=== PATIENT | female | born 1975 | race Caucasian/White ===

== ENCOUNTER 2016-11-20 09:05 | Emergency (ER) | payer OTHER ==
[~2016-11-20] VITALS: Ht 170.2 cm; Wt 68.2 kg
[~2016-11-20 09:05] MED LIST: CYCL-36 PO; IBUP-232 PO
[2016-11-20 09:13] VITALS: BP 134/95; PULSE 94; RESP 18; TEMP 98.2; O2SAT 98
[2016-11-20] MEDS ORDERED: ONDANSETRON HCL 4 MG/2 ML VIAL IV PUSH ONE (09:30)
[2016-11-20] MEDS ORDERED: SODIUM CHLOR 0.9% 1000 ML INJ 1,000 ML IV ONE (09:30)
--- NOTE | 2016-11-20 09:33 | PD ---
HPI Chief Complaint: GI Complaint Time Seen by Provider: 09:21 Travel History International Travel<30 days: No Contact w/Intl Traveler<30days: No Traveled to known affect area: No History of Present Illness HPI 41yo F with PMH of polysubstance abuse presents to the ED with c/o nausea and NBNB vomiting since yesterday. Denies any fever, chest pain, sob, abdominal pain, diarrhea, dysuria, vaginal bleeding, vaginal discharge, focal weakness or numbness. Pt states when she vomits, she has some abdominal discomfort but not really pain. Drinks alcohol occasionally. Denies any marajuana or other drug use. States she ate fish sandwich and felt nauseous after. Had recent endoscopy about 1 month ago and was found to have esophagitis. PFSH Past Medical History Anxiety: Yes Depression: Yes Cancer: No Cardiovascular Problems: Yes (HTN) High Cholesterol: Yes Cerebrovascular Accident: No Diminished Hearing: No Endocrine: No Gastrointestinal Disorders: No GERD: Yes Musculoskeletal: Yes (broken femur 1 yr ago, had a toñito put in.) Psychiatric: Yes (Psych admission on 02/16/08, went to [facility]) Reproductive: Yes (GENITAL HERPES) Immunizations Current: No Thyroid Disease: Yes (hypo) PNEUMOCCOCAL Vaccine (Year): 3 ?: Not Menopausal: No : 1 Para: 0 Miscarriage: 0 : 1 Social History Alcohol Use: Yes (3-4 DAILY) Tobacco Use: No (uses e cigs now) Substance Use: No (denies) Allergies-Medications (Allergen,Severity, Reaction): Coded Allergies: Compazine (Verified Allergy, Severe, PHILIP, 11/20/16) Reported Meds & Prescriptions Reported Meds & Active Scripts Active Reported Lisinopril 2.5 Mg Tab Unknown Dose PO DAILY Pantoprazole (Pantoprazole Sodium) 40 Mg Tab Unknown Dose PO DAILY Review of Systems Except as stated in HPI: all other systems reviewed are Neg Physical Exam Narrative GENERAL: 41yo F not in distress. SKIN: Focused skin assessment warm/dry. HEAD: Atraumatic. Normocephalic. CARDIOVASCULAR: Regular rate and rhythm. No murmur appreciated. RESPIRATORY: No accessory muscle use. Clear to auscultation. Breath sounds equal bilaterally. GASTROINTESTINAL: Abdomen soft, non-tender, nondistended. No rebound tenderness or guarding. MUSCULOSKELETAL: No obvious deformities. No clubbing. No cyanosis. No edema. NEUROLOGICAL: Awake and alert. No obvious cranial nerve deficits. Motor grossly within normal limits. Normal speech. PSYCHIATRIC: Appropriate mood and affect; insight and judgment normal. Data Data Last Documented VS Vital Signs Date Time Temp Pulse Resp B/P Pulse Ox O2 Delivery O2 Flow Rate FiO2 11/20/16 12:02 89 16 114/72 98 Room Air 11/20/16 09:13 98.2 Orders Urinalysis - C+S If Indicated (11/20/16 09:27) Ed Urine Pregnancytest Poc (11/20/16:27) Complete Blood Count With Diff (11/20/16:) Comprehensive Metabolic Panel (11/20/16:) Lipase (11/20/16:) Ondansetron Inj (Zofran Inj) (11/20/16 09:30) Sodium Chlor 0.9% 1000 Ml Inj (Ns 1000 M (11/20/16 09:30) Pantoprazole Inj (Protonix Inj) (11/20/16 09:45) Ketorolac Inj (Toradol Inj) (11/20/16 10:15) Bhcg Screen Qualitative (11/20/16 11:08) Labs Laboratory Tests Test 11/20/16 11/20/16 10:00 11:30 White Blood Count 7.7 TH/MM3 Red Blood Count 4.21 MIL/MM3 Hemoglobin 12.5 GM/DL Hematocrit 36.8 % Mean Corpuscular Volume 87.4 FL Mean Corpuscular Hemoglobin 29.8 PG Mean Corpuscular Hemoglobin 34.1 % Concent Red Cell Distribution Width 12.4 % Platelet Count 306 TH/MM3 Mean Platelet Volume 7.9 FL Neutrophils (%) (Auto) 66.6 % Lymphocytes (%) (Auto) 23.4 % Monocytes (%) (Auto) 6.9 % Eosinophils (%) (Auto) 2.3 % Basophils (%) (Auto) 0.8 % Neutrophils # (Auto) 5.1 TH/MM3 Lymphocytes # (Auto) 1.8 TH/MM3 Monocytes # (Auto) 0.5 TH/MM3 Eosinophils # (Auto) 0.2 TH/MM3 Basophils # (Auto) 0.1 TH/MM3 CBC Comment DIFF FINAL Differential Comment Sodium Level 141 MEQ/L Potassium Level 3.8 MEQ/L Chloride Level 105 MEQ/L Carbon Dioxide Level 24.3 MEQ/L Anion Gap 12 MEQ/L Blood Urea Nitrogen 13 MG/DL Creatinine 0.93 MG/DL Estimat Glomerular Filtration 66 ML/MIN Rate Random Glucose 90 MG/DL Calcium Level 9.3 MG/DL Total Bilirubin 0.6 MG/DL Aspartate Amino Transf 15 U/L (AST/SGOT) Alanine Aminotransferase 27 U/L (ALT/SGPT) Alkaline Phosphatase 51 U/L Total Protein 7.7 GM/DL Albumin 3.9 GM/DL Lipase 168 U/L Urine Collection Type CLEAN CATCH Urine Color YELLOW Urine Turbidity CLEAR Urine pH 6.0 Urine Specific [place] 1.028 Urine Protein 30 mg/dL Urine Glucose (UA) NEG mg/dL Urine Ketones NEG mg/dL Urine Occult Blood SMALL Urine Nitrite NEG Urine Bilirubin NEG Urine Leukocyte Esterase NEG Urine RBC 4-9 /hpf Urine Squamous Epithelial 0-5 /hpf Cells Urine Amorphous Sediment FEW Microscopic Urinalysis Comment CULT NOT INDICATED Urine Collection Time 11:30 MDM Medical Decision Making Medical Screen Exam Complete: Yes Emergency Medical Condition: Yes Differential Diagnosis Gastritis vs. vs. pancreatitis vs. UTI Narrative Course 41yo F with vomiting yesterday. Pt has no abdominal pain on exam. Labs reviewed, no leukocytosis. CMP unremarkable. UA negative. RBC 4-9. Culture not indicated. negative. Pt given zofran, pantoprazole and toradol. Pt reevaluated at bedside and feels better. Pt is tolerating PO. Return precautions given. Diagnosis Primary Impression: Vomiting Qualified Code: R11.2 - Non-intractable vomiting with nausea, unspecified vomiting type Patient Instructions: General Instructions Departure Forms: Tests/Procedures, Work Release Enter return to work date: Nov 21, 2016 Additional Instructions: Please follow up with your PMD in 3-7 days. Return to the ED if symptoms worsen. Med/Other Pt SpecificInfo: Prescription(s) given Scripts Ondansetron Odt (Zofran Odt)4 Mg Tab4 Mg SL Q12HR PRN (Nausea/Vomiting) #7 TAB Ref 0 Prov:Isaura Yeh 11/20/16 Disposition: 01 DISCHARGE HOME Condition: Stable YehBibiana jacksonmarianne PERKINS Nov 20, 2016 09:33
[2016-11-20] MEDS ORDERED: PANT40TA3 PO (09:36)
[2016-11-20] MEDS ORDERED: LISI2.5T3 PO (09:36)
[2016-11-20] MEDS ORDERED: PANTOPRAZOLE SODIUM 40 MG VIAL IV PUSH ONE (09:45)
[2016-11-20 10:06] LABS: AUTOMATED NEUTROPHIL # 5.1 TH/MM3 (1.8-7.7); BASOPHIL # 0.1 TH/MM3 (0-0.2); BASOPHIL % 0.8 % (0.0-2.0); EOSINOPHIL # 0.2 TH/MM3 (0-0.4); EOSINOPHIL % 2.3 % (0.0-4.0); HEMATOCRIT 36.8 % (35.0-46.0); HEMO FLAGS DIFF FINAL; LYMPH % 23.4 % (9.0-44.0); LYMPHOCYTE # 1.8 TH/MM3 (1.0-4.8); MEAN CELL VOLUME 87.4 FL (80.0-100.0); MEAN CORPUSCULAR HEMOGLOBIN 29.8 PG (27.0-34.0); MEAN CORPUSCULAR HGB CONC 34.1 % (32.0-36.0); MONO % 6.9 % (0.0-8.0); NEUT % 66.6 % (16.0-70.0); PLATELET COUNT 306 TH/MM3 (150-450); RED BLOOD COUNT 4.21 MIL/MM3 (4.00-5.30); RED CELL DISTRIBUTION WIDTH 12.4 % (11.6-17.2); WHITE BLOOD COUNT 7.7 TH/MM3 (4.0-11.0)
[2016-11-20] MEDS ORDERED: KETOROLAC TROMETHAMINE 30 MG/ML (IVP) VIAL IV PUSH ONE (10:15)
[2016-11-20 10:17] LABS: ANION GAP 12 MEQ/L (5-15); BICARBONATE 24.3 MEQ/L (21.0-32.0); CHLORIDE 105 MEQ/L (98-107); POTASSIUM 3.8 MEQ/L (3.5-5.1); SODIUM (NA) 141 MEQ/L (136-145)
[2016-11-20 10:20] LABS: GLOMERULAR FILTRATION RATE 66 ML/MIN (>89)
[2016-11-20 10:22] LABS: ALKALINE PHOSPHATASE 51 U/L (45-117); ALT (GPT) 27 U/L (10-53); TOTAL BILIRUBIN ADULT 0.6 MG/DL (0.2-1.0)
[2016-11-20 10:23] LABS: BLOOD UREA NITROGEN 13 MG/DL (7-18)
[2016-11-20 10:24] LABS: AST (GOT) 15 U/L (15-37)
[2016-11-20 11:33] LABS: BLOOD, URINE SMALL (NEG); GLUCOSE,URINE NEG (NEG); KETONE, URINE NEG (NEG); NITRITE,URINE NEG (NEG)
[2016-11-20 11:44] LABS: METHOD OF COLLECTION CLEAN CATCH; URINE COLOR YELLOW (YELLW/STRAW)
[2016-11-20 11:45] LABS: COMMENT (UR) CULT NOT INDICATED; CULTURE IF INDICATED CULT NOT INDICATED; SQUAMOUS EPITHELIAL CELL URINE 0-5 /hpf (0-5)
[2016-11-20 12:02] VITALS: BP 114/72; PULSE 89; RESP 16; O2SAT 98
[2016-11-20] MEDS ORDERED: ZOFR4TAB3 SL (12:13)
== END 2016-11-20 12:21 | disposition home or self-care (01) ==
LOC: PHED 09:05
DX: R11.2 Nausea with vomiting, unspecified (principal)
CPT/HCPCS: 80053; 81001; 83690; 84703; 85025; 96361; 96374; 96375; 99284; C9113; J1885; J2405; J7030